=== PATIENT | male | born 1935 | race Caucasian/White ===

== ENCOUNTER 2016-12-17 23:40 | Inpatient (IN) ==
[2016-12-18] MEDS ORDERED: ALBUTEROL/IPRATROPIUM 3 ML NEB RESP TX STA (00:12)
--- NOTE | 2016-12-18 00:16 | Emergency Department Note ---
Anatoly Kearney Brittany, am scribing for, and in the presence of, Adelita Reyna DO 00:14. IAxel Debra, DO, personally performed the services described in this documentation, ascribed by Jackie Ledbetter in my presence, and it is both accurate and complete . Arrival - Arrival Chief Complaint: Shortness of Breath Stated Complaint: COPD, pneumonia ED Nursing Triage Note: patient states he has been short of breath since saturday. hx copd Mode of Arrival: Wheelchair Limitations: No Limitations Source: Patient, RN Notes Reviewed - History of Present Illness HPI Narrative: Patient is a 80 y/o white male with a history significant for COPD presenting to the ED with c/o SOB which onset 3 days ago, worsening today. Patient states that after SOB onset Saturday, he utilized Prednisone, and had relief over the course of the next 2 days. This morning patient began to experience a worsening of SOB and has been having fever/chills. It is noted that during triage patient had a fever of 100.4. Patient states that he has had some mild swelling of the bilateral lower extremities as well with this. His Marketing Administrator is Dr. Garrett Fam. Patient has no other complaint/pain in the ED at this time. Onset (ago): day(s) (3) Consistency: constant Allergies/Adverse Reactions: Allergies Allergy/AdvReac Type Severity Reaction Status Date / Time rosuvastatin [From Crestor] Allergy RASH Verified 12/17/16 23:54 Home Medications: Home Medications Medication Instructions Recorded Confirmed Type Albuterol/Ipratropium Neb [Duoneb] 3 ml RESP TX RT Q6H 12/17/16 12/17/16 History Aspirin [Ecotrin] 81 mg PO DAILY 12/17/16 12/17/16 History Atenolol 25 mg PO DAILY 12/17/16 12/17/16 History Atorvastatin [Lipitor] 10 mg PO DAILY 12/17/16 12/17/16 History Furosemide Tab [Lasix Tab] 40 mg PO DAILY 12/17/16 12/17/16 History Magnesium Chloride [Slow Mag] 64 mg PO DAILY 12/17/16 12/17/16 History Omeprazole 10 mg PO DAILY 12/17/16 12/17/16 History Potassium Chloride 10 meq PO DAILY 12/17/16 12/17/16 History amLODIPine [Norvasc] 5 mg PO DAILY 12/17/16 12/17/16 History predniSONE TAB [PredniSONE] 10 mg PO DAILY 12/17/16 12/17/16 History Review of System - Review of System 12 point system: reviewed and no additional remarkable complaints except as stated - Review of System Constitutional: Present: chills, fever Eyes: Absent: vision change Head/Ears/Nose/Throat: Absent: nasal drainage, sore throat Respiratory: Present: respiratory distress Cardiovascular: Absent: chest pain Gastrointestinal: Absent: abdominal pain, nausea, vomiting, diarrhea, constipation Genitourinary male: Absent: urgency, dysuria, frequency Musculoskeletal: Absent: arm pain, back pain, leg pain, neck pain Skin: Absent: rash Neurological: Absent: headache Psychiatric: Absent: anxiety, depression Medical,Surgical,& Family Hx - Medical History Cardio: History of: Hypertension, [place] Endocrine: History of: Dyslipidemia Respiratory: History of: COPD, Pneumonia - Social History Smoking Status: Unknown if ever smoked Frequency of Alcohol Use: None Type of Drug Use: None Exam Vital Signs: Vital Signs Temperature 100.4 F H 12/17/16 23:47 Pulse Rate 93 H 12/18/16 00:35 Respiratory Rate 21 12/18/16 00:35 Blood Pressure 143/76 12/18/16 00:04 O2 Sat by Pulse Oximetry 97 12/18/16 00:35 - General General appearance: alert, in no apparent distress, cachectic - Head Head exam: Present: atraumatic, normocephalic, normal inspection - Eye Eye exam: Present: normal appearance, PERRL, EOMI - ENT ENT exam: Present: normal exam, normal oropharynx - Neck Neck exam: Present: normal inspection, full ROM, trachea midline - Chest Chest inspection: Present: normal inspection, symmetric chest wall rise - Respiratory Respiratory exam: Present: rales (throughout bilateral lung gonzalez), rhonchi ( throughout bilateral lung gonzalez), wheezes (throughout bilateral lung gonzalez), other (pursed lip breathing). Absent: normal lung sounds bilaterally - Cardiovascular Cardiovascular exam: Present: normal rhythm, tachycardia, normal heart sounds. Absent: regular rate - Abdominal Exam Abdominal exam: Present: soft, normal bowel sounds. Absent: tenderness - Extremities Exam Extremities exam: Present: pedal edema (mild non-pitting edema to bilateral lower extremities). Absent: normal inspection - Back Exam Back exam: Present: normal inspection - Neurological Exam Neurological exam: Present: alert, oriented X3, CN II-XII intact. Absent: motor sensory deficit - Psychiatric Psychiatric exam: Present: normal affect, normal mood - Skin Skin exam: Present: warm, dry Course Course Narrative: spoke with Dr Mckinney who will admit pt for pneumonia. pt is stable Results - Labs CBC & BMP: 12/18/16 00:10 Lab Results: I have reviewed the patients labs Labs: Laboratory Tests 12/18/16 00:10 WBC 16.8 H RBC 4.44 Hgb 12.6 L Hct 37.0 L MCV 83.3 L Plt Count 389 Neut % (Auto) 80.2 H Lymph % (Auto) 10.1 L Neut # (Auto) 13.5 H Dent # (Auto) 1.4 H - EKG EKG results: interpreted by ERMD - Diagnostic Findings Procedure: Chest x-ray: image reviewed by me (rt lower lobe pneumonia) Disposition Case discussed with: patient, patient's family Disposition: Still a Patient Condition: Stable Time of Disposition: 00:53
[2016-12-18 00:37] LABS: Basophils % 0.1 % (0.0-0.8); Eosinophils % 0.2 % (0.00-10.9); Hemoglobin 12.6 GM/DL (14.0-18.0); Immature Granulocytes % 0.9 %; Immature Granulocytes Absolute 0.15 #; Lymphocytes # 1.7 10*3/uL (1.4-4.0); Lymphocytes % 10.1 % (21.2-54.2); Mean Corpuscular HGB Conc 34.1 GM/DL (32-36); Mean Corpuscular Hemoglobin 28 PG (27-34); Mean Corpuscular Volume 83.3 FL (87-102); Mean Platelet Volume 9.6 FL (9.6-12.0); Monocytes # 1.4 10*3/uL (0.11-0.8); Monocytes % 8.5 % (1.7-12.7); Neutrophils # 13.5 10*3/uL (1.4-7.4); Neutrophils % 80.2 % (38.7-73.9); Platelet Count 389 T/CUMM (130-400); Red Blood Count 4.44 MC/CUMM (3.8-5.5); Red Cell Distribution Width 14.6 % (9.3-17.3); White Blood Count 16.8 T/CUMM (4-12)
[2016-12-18] MEDS ORDERED: LEVOFLOXACIN INJ 750 MG in PREMIX 1 EACH IV STA (00:50)
[2016-12-18] MEDS ORDERED: LEVOFLOXACIN INJ 150 ML IV ONE (00:58)
[2016-12-18 01:00] LABS: Lactic Acid 1.3 MMOL/L (0.4-2.0)
[2016-12-18 01:02] LABS: Albumin 3.6 G/DL (3.4-5.0); Bilirubin,Total 0.5 MG/DL (0.2-1.0); Calcium 9.4 MG/DL (8.5-10.1); Osmolality,Calculated 270.2 MOS/KG (273-304); Potassium 4.2 MMOL/L (3.5-5.1); Total Protein 7.2 G/DL (6.4-8.3)
[2016-12-18] MEDS ORDERED: HYDROcodone/CHLORPHENIRAMINE ER 5 ML UDCUP PO ONE ×2 (01:22→01:51)
[2016-12-18] MEDS ORDERED: ACETAMINOPHEN 325 MG TABLET PO PRN (01:48)
[2016-12-18] MEDS ORDERED: ALBUTEROL 2.5 MG/3 ML NEB RESP TX PRN (01:48)
--- NOTE | 2016-12-18 01:56 | Hospitalist History & Physical ---
Assessment and Plan (1) History of coronary artery disease Status: Acute Current Visit: Yes (2) History of COPD Status: Acute Current Visit: Yes (3) Pneumonia Status: Acute Assessment and plan: Our plan for this patient will be admitting him to our service. Will consult his gauge controller which is Dr. Kg Fam. He will be started on IV antibiotics blood cultures been drawn. Will schedule breathing treatments. We will also increase his steroids from 10 mg daily to 40 mg daily while he is in the hospital. Continue other home meds as appropriate. Reevaluate patient in the morning. Current Visit: Yes History of Present Illness Chief complaint: Cough and shortness of breath History of present illness: Mr. Mckeon is a 80 year old male with past medical history significant for COPD and coronary artery disease he is been having shortness of breath for the past several days. Earlier he was running fever. He felt pretty bad and Saturday but Saturday and Saturday were okay. Today his symptoms return he felt worse. He felt like he needed to come up to the hospital for further evaluation. I was consulted to admit him when it was noted that he had a pneumonia. Home Medications Medication Instructions Recorded Confirmed Type Albuterol/Ipratropium Neb [Duoneb] 3 ml RESP TX RT Q6H 12/17/16 12/17/16 History Aspirin [Ecotrin] 81 mg PO DAILY 12/17/16 12/17/16 History Atenolol 25 mg PO DAILY 12/17/16 12/17/16 History Atorvastatin [Lipitor] 10 mg PO DAILY 12/17/16 12/17/16 History Furosemide Tab [Lasix Tab] 40 mg PO DAILY 12/17/16 12/17/16 History Magnesium Chloride [Slow Mag] 64 mg PO DAILY 12/17/16 12/17/16 History Omeprazole 10 mg PO DAILY 12/17/16 12/17/16 History Potassium Chloride 10 meq PO DAILY 12/17/16 12/17/16 History amLODIPine [Norvasc] 5 mg PO DAILY 12/17/16 12/17/16 History predniSONE TAB [PredniSONE] 10 mg PO DAILY 12/17/16 12/17/16 History Allergies Allergy/AdvReac Type Severity Reaction Status Date / Time rosuvastatin [From Crestor] Allergy RASH Verified 12/17/16 23:54 Medical,Surgical,& Family Hx - Medical History Cardio: History of: Hypertension, [place] Endocrine: History of: Dyslipidemia Respiratory: History of: COPD, Pneumonia - Surgical History Cardiac Surgeries: Sugical HX of: Cardiac Surgery - Family History Family History: Reports;: Family Hypertension - Social History Smoking Status: Former smoker Frequency of Alcohol Use: None Type of Drug Use: None 12 point system: reviewed and no additional remarkable complaints except as stated Exam - Constitutional Vitals: Period Temp Pulse Resp BP Sys/Huitron Pulse Ox Last 24 Hr 100.4 F-100.4 F 93-102 20-26 143-149/63-76 91-97 - General General appearance: alert, in no apparent distress - Head Head exam: Present: atraumatic, normocephalic, normal inspection - Eye Eye exam: Present: normal appearance, EOMI asymmetrical pupils but 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 Absent: regular rate - Abdominal Exam Abdominal exam: Present: soft, normal bowel sounds. Absent: tenderness - Extremities Exam Extremities exam: Present: Some mild edema appreciated - Back Exam Back exam: Present: normal inspection - Neurological Exam Neurological exam: Present: alert, oriented X3, CN II-XII intact. Absent: motor sensory deficit - Psychiatric Psychiatric exam: Present: normal affect, normal mood - Skin Skin exam: Present: warm, dry Results - Labs CBC & BMP: 12/18/16 00:10 12/18/16 00:10
[2016-12-18 06:32] LABS: Basophils % 0.1 % (0.0-0.8); Eosinophils % 0.1 % (0.00-10.9); Hematocrit 33.3 VOL% (42.0-52.0); Hemoglobin 11.2 GM/DL (14.0-18.0); Immature Granulocytes % 0.7 %; Lymphocytes # 2.2 10*3/uL (1.4-4.0); Lymphocytes % 14.5 % (21.2-54.2); Mean Corpuscular HGB Conc 33.6 GM/DL (32-36); Mean Corpuscular Hemoglobin 28 PG (27-34); Mean Corpuscular Volume 83.7 FL (87-102); Mean Platelet Volume 9.9 FL (9.6-12.0); Monocytes # 1.6 10*3/uL (0.11-0.8); Monocytes % 10.8 % (1.7-12.7); Neutrophils # 11.1 10*3/uL (1.4-7.4); Neutrophils % 73.8 % (38.7-73.9); Platelet Count 398 T/CUMM (130-400); Red Blood Count 3.98 MC/CUMM (3.8-5.5); Red Cell Distribution Width 14.6 % (9.3-17.3)
[2016-12-18 07:12] LABS: Albumin 3.1 G/DL (3.4-5.0); Calcium 8.8 MG/DL (8.5-10.1); Osmolality,Calculated 268.2 MOS/KG (273-304); Potassium 4.7 MMOL/L (3.5-5.1); Total Protein 6.5 G/DL (6.4-8.3)
[2016-12-18] MEDS: ALBUTEROL/IPRATROPIUM 3 ML NEB RESP TX SCH ×3 (07:25→19:46)
--- NOTE | 2016-12-18 07:25 | XRay Report ---
History short of breath Comparison 06/25/2011 Heart is at the upper range normal in size with sequelae of prior median sternotomy There has been interval development of reticular nodular opacities in the lower half right chest mildly more confluent opacity in the medial right lung base Minimally increasing reticular opacities in the left base present. The lungs are chronically hyperexpanded with chronic blunting of the costophrenic angles. Right rib contours grossly similar on the prior study Impression: Interval development of the right greater than left basilar infiltrates superimposed on chronic changes. Follow-up until clear is necessary PROCEDURE INTERPRETED AT [facility] DEPARTMENT OF RADIOLOGY Final Report Signed by: Dr. Yadira Stewrat
--- NOTE | 2016-12-18 07:47 | EKG Report ---
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
--- NOTE | 2016-12-18 08:21 | Pulmonology Consult Note ---
Assessment and Plan (1) Pneumonia Status: Acute Assessment and plan: The patient comes in with an acute febrile illness and does have right lower lobe pneumonia. He looks reasonably comfortable at present. We will continue with antibiotics and respiratory therapy. Current Visit: Yes Qualifiers: Laterality: right Lung location: lower lobe of lung (2) History of coronary artery disease Status: Acute Assessment and plan: The patient is not having any angina. Current Visit: Yes (3) History of COPD Status: Acute Assessment and plan: Patient is reasonably comfortable at present. He will continue with bronchodilator therapy. Current Visit: Yes History of Present Illness Chief complaint: Pneumonia History of present illness: Mr. Mckeon is a 80 year old white male that has a history of having COPD and coronary artery disease came in with increased shortness of breath yesterday. He was found to have a right lower lobe pneumonia. He says he has been sick all last week with some sinus drainage and coughing. He felt like he had a low- grade fever. He is coughing up some thick secretions. He says his shortness of breath is not too badly. He says he is feeling a little better today. He has not had a lot of problems lately. He did say last week he increased his prednisone a little but still had a lot of congestion. Home Medications Medication Instructions Recorded Confirmed Type Albuterol/Ipratropium Neb [Duoneb] 3 ml RESP TX RT Q6H 12/17/16 12/17/16 History Aspirin [Ecotrin] 81 mg PO DAILY 12/17/16 12/17/16 History Atenolol 25 mg PO DAILY 12/17/16 12/17/16 History Atorvastatin [Lipitor] 10 mg PO DAILY 12/17/16 12/17/16 History Furosemide Tab [Lasix Tab] 40 mg PO DAILY 12/17/16 12/17/16 History Magnesium Chloride [Slow Mag] 64 mg PO DAILY 12/17/16 12/17/16 History Omeprazole 10 mg PO DAILY 12/17/16 12/17/16 History Potassium Chloride 10 meq PO DAILY 12/17/16 12/17/16 History amLODIPine [Norvasc] 5 mg PO DAILY 12/17/16 12/17/16 History predniSONE TAB [PredniSONE] 10 mg PO DAILY 12/17/16 12/17/16 History Allergies Allergy/AdvReac Type Severity Reaction Status Date / Time rosuvastatin [From Crestor] Allergy RASH Verified 12/17/16 23:54 - Constitutional Constitutional: Present: chills, fatigue, fever(s). Absent: weakness, weight loss - EENT Eyes: Absent: loss of vision Ears: Absent: decreased hearing Nose, mouth and throat: Present: nasal congestion, sinus pressure. Absent: dysphagia, headache(s) - Cardiovascular Cardiovascular: Present: dyspnea, dyspnea on exertion. Absent: chest pain at rest, chest pain with activity, orthopnea, palpitations - Respiratory Respiratory: Present: cough, dyspnea, wheezing, change in phlegm color. Absent : hemoptysis, pain on inspiration - Gastrointestinal Gastrointestinal: Present: diarrhea. Absent: abdominal pain, dysphagia, heartburn, nausea, vomiting - Genitourinary Genitourinary: Absent: difficulty urinating, dysuria, urinary frequency - Musculoskeletal Musculoskeletal: Absent: arthralgias, muscle weakness - Neurological Neurological: Absent: abnormal speech, focal weakness, paresthesias - Psychiatric Psychiatric: Absent: anxiety, depression Exam (Pulmonay) H&P - Constitutional Vitals: Period Temp Pulse Resp BP Sys/Huitron Pulse Ox Last 24 Hr 98.8 F-100.4 F 84-102 20-26 129-149/57-76 91-97 General appearance: no acute distress (He looks comfortable in bed at present.) , under weight - Head Head exam: Present: normal inspection, normocephalic - Eye Eye exam: Present: EOMI. Absent: scleral icterus Pupils: Present: GLORIA - ENT ENT exam: Present: normal exam - Neck Neck exam: Present: normal inspection. Absent: lymphadenopathy, thyromegaly - Respiratory Respiratory exam: Present: decreased breath sounds, prolonged expiratory phase, rales, rhonchi. Absent: accessory muscle use - Cardiovascular Cardiovascular exam: Present: regular rate and rhythm, tachycardia. Absent: gallop, systolic murmur - GI/Abdominal GI/Abdominal exam: Present: hypoactive bowel sounds, soft. Absent: distended, organomegaly, tenderness - Extremities Exam Extremities exam: Present: edema (Has trace edema.). Absent: calf tenderness - Back Exam Back exam: Present: normal inspection - Neurological Exam Neurological exam: Present: alert, oriented X3, CN II-XII intact. Absent: motor sensory deficit - Psychiatric Psychiatric exam: Present: normal affect - Skin Skin exam: Present: warm, dry Medical,Surgical,& Family Hx - Medical History Cardio: History of: Hypertension, [place] Endocrine: History of: Dyslipidemia Respiratory: History of: COPD, Pneumonia - Surgical History Cardiac Surgeries: Sugical HX of: Cardiac Surgery Orthopedic Surgeries: Surgical HX of;: Orthopedic Surgery (knee and elbow) - Family History Family History: Reports;: Family Hypertension - Social History Smoking Status: Unknown if ever smoked Frequency of Alcohol Use: None Type of Drug Use: None Results - Labs CBC & BMP: 12/18/16 05:41 12/18/16 05:41 - Diagnostic Findings Procedure: Chest x-ray: image reviewed by me, report reviewed by me (Chest x- ray does show right lower lobe consolidation.)
[2016-12-18] MEDS: amLODIPine 5 MG TABLET PO SCH (09:23)
[2016-12-18] MEDS: FUROSEMIDE 40 MG TABLET PO SCH (09:23)
[2016-12-18] MEDS: MAGNESIUM CHLORIDE 64 MG TABLET PO SCH (09:23)
[2016-12-18] MEDS: PANTOPRAZOLE 40 MG TABLET PO SCH (09:23)
[2016-12-18] MEDS: predniSONE 20 MG TABLET PO SCH (09:23)
[2016-12-18] MEDS: POTASSIUM CHLORIDE 10 MEQ TABLET PO SCH (09:23)
[2016-12-18] MEDS: cefTRIAXone 1,000 MG in SODIUM CHLORIDE 0.9% 100 ML IV SCH (09:23)
[2016-12-18] MEDS: ATORVASTATIN 10 MG TABLET PO SCH (09:23)
[2016-12-18] MEDS: ENOXAPARIN 40 MG/0.4 ML SYRINGE SUBCUT SCH (09:23)
[2016-12-18] MEDS: ASPIRIN EC 81 MG TABLET PO SCH (09:23)
[2016-12-18] MEDS: ATENOLOL 25 MG TABLET PO SCH (09:24)
--- NOTE | 2016-12-18 15:07 | Hospitalist Progress Note ---
Assessment and Plan (1) Pneumonia Status: Acute Assessment and plan: Status: Acute Assessment and plan: The patient comes in with an acute febrile illness and does have right lower lobe pneumonia. continue IV antbx duonebs and oxygen pulmonary consulted will follow their recs Current Visit: Yes Qualifiers: Laterality: right Lung location: lower lobe of lung (2) History of coronary artery disease Status: Acute Assessment and plan: stable contiune his home meds Current Visit: Yes (3) History of COPD Status: Acute Assessment and plan: stable will continue with bronchodilator and oxygen therapy. Current Visit: Yes Current Visit: Yes Qualifiers: Laterality: right Lung location: lower lobe of lung Hospitalist: Subjective Interval history: feeling better less sob no fever hx of COPD on home oxygen and duoneb started on iv Levaquin Exam - Constitutional Vitals: Period Temp Pulse Resp BP Sys/Huitron Pulse Ox Last 24 Hr 97.7 F-100.4 F 68-102 18-26 116-149/56-76 91-99 heent, pearle neck, supple. chest decerase breath sounds at the base with fine Rhonchi cvs, s1 s2. 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
[2016-12-18] MEDS: LEVOFLOXACIN INJ 750 MG in PREMIX 1 EACH IV SCH (20:13)
[2016-12-19] MEDS: ALBUTEROL/IPRATROPIUM 3 ML NEB RESP TX SCH ×4 (00:14→19:12)
--- NOTE | 2016-12-19 08:37 | Pulmonology Progress Note ---
Pulmonary - PN: Subj Interval history: Patient is an 80-year-old white man that has COPD and coronary artery disease. He came in with fever and coughing and congestion. He was found to have a right lower lobe pneumonia. He says he is feeling better on antibiotics but still has some cough and congestion. His breathing is doing a little better. Overall he appears stable. Exam (Progress Note) - Constitutional Vitals: Period Temp Pulse Resp BP Sys/Huitron Pulse Ox Last 24 Hr 97 F-97.8 F 67-85 18-22 116-148/56-72 93-100 Exam: General appearance: no acute distress (He looks comfortable sitting up in his bed. ), under weight - Head Head exam: Present: normal inspection, normocephalic - Eye Eye exam: Present: EOMI. Absent: scleral icterus Pupils: Present: GLORIA - ENT ENT exam: Present: normal exam - Neck Neck exam: Present: normal inspection. Absent: lymphadenopathy, thyromegaly - Respiratory Respiratory exam: Present: He has distant breath sounds but is moving air okay with some slight rhonchi present. - Cardiovascular Cardiovascular exam: Present: regular rate and rhythm, tachycardia. Absent: gallop, systolic murmur - GI/Abdominal GI/Abdominal exam: Present: hypoactive bowel sounds, soft. Absent: distended, organomegaly, tenderness - Extremities Exam Extremities exam: Present: edema (Has trace edema.). Absent: calf tenderness - Back Exam Back exam: Present: normal inspection - Neurological Exam Neurological exam: Present: alert, oriented X3, CN II-XII intact. Absent: motor sensory deficit - Psychiatric Psychiatric exam: Present: normal affect - Skin Skin exam: Present: warm, dry Results - Labs CBC & BMP: 12/18/16 05:41 12/18/16 05:41 Assessment and Plan (1) Pneumonia Status: Acute Assessment and plan: The patient comes in with an acute febrile illness and does have right lower lobe pneumonia. He looks reasonably comfortable at present. His blood cultures are negative so far. He is tolerating antibiotics. Current Visit: Yes Qualifiers: Laterality: right Lung location: lower lobe of lung (2) History of coronary artery disease Status: Acute Assessment and plan: The patient is not having any angina. Current Visit: Yes (3) History of COPD Status: Acute Assessment and plan: Patient is reasonably comfortable at present. He will continue with bronchodilator therapy. His respiratory status is stable. Current Visit: Yes
[2016-12-19] MEDS: cefTRIAXone 1,000 MG in SODIUM CHLORIDE 0.9% 100 ML IV SCH (08:52)
[2016-12-19] MEDS ORDERED: predniSONE 10 MG TABLET ONE (09:27)
[2016-12-19] MEDS: ENOXAPARIN 40 MG/0.4 ML SYRINGE SUBCUT SCH (09:52)
[2016-12-19] MEDS: ASPIRIN EC 81 MG TABLET PO SCH (09:53)
[2016-12-19] MEDS: ATENOLOL 25 MG TABLET PO SCH (09:53)
[2016-12-19] MEDS: MAGNESIUM CHLORIDE 64 MG TABLET PO SCH (09:53)
[2016-12-19] MEDS: FUROSEMIDE 40 MG TABLET PO SCH (09:54)
[2016-12-19] MEDS: predniSONE 20 MG TABLET PO SCH (09:54)
[2016-12-19] MEDS: PANTOPRAZOLE 40 MG TABLET PO SCH (09:54)
[2016-12-19] MEDS: ATORVASTATIN 10 MG TABLET PO SCH (09:54)
[2016-12-19] MEDS: POTASSIUM CHLORIDE 10 MEQ TABLET PO SCH (09:55)
[2016-12-19] MEDS: amLODIPine 5 MG TABLET PO SCH (09:55)
--- NOTE | 2016-12-19 17:57 | Hospitalist Progress Note ---
Assessment and Plan (1) Pneumonia Status: Acute Current Visit: Yes Qualifiers: Laterality: right Lung location: lower lobe of lung (2) History of coronary artery disease Status: Acute Current Visit: Yes (3) History of COPD Status: Acute Current Visit: Yes Hospitalist: Subjective Interval history: No acute events overnight. Patient feeling better. He is eager for discharge. Exam - Constitutional Vitals: Period Temp Pulse Resp BP Sys/Huitron Pulse Ox Last 24 Hr 97 F-97.8 F 67-96 18-21 116-148/56-72 94-100 General appearance: normal weight - Head Head exam: Present: normocephalic, atraumatic - Eye Eye exam: Present: EOMI Pupils: Present: GLORIA - ENT ENT exam: Present: normal exam - Neck Neck exam: Present: normal inspection - Respiratory Respiratory exam: Present: clear to auscultation bilaterally. Absent: rhonchi, wheezes - Cardiovascular Cardiovascular exam: Present: regular rate and rhythm - GI/Abdominal GI/Abdominal exam: Present: normal bowel sounds, soft. Absent: tenderness, rebound - Extremities Exam Extremities exam: Present: normal inspection - Back Exam Back exam: Present: normal inspection - Neurological Exam Neurological exam: Present: alert, oriented X3 - Psychiatric Psychiatric exam: Present: normal affect, normal mood - Skin Skin exam: Present: warm, intact Results - Labs CBC & BMP: 12/18/16 05:41 12/18/16 05:41
[2016-12-19] MEDS: LEVOFLOXACIN INJ 750 MG in PREMIX 1 EACH IV SCH (21:12)
[2016-12-20] MEDS: ALBUTEROL/IPRATROPIUM 3 ML NEB RESP TX SCH ×2 (01:41→07:41)
[2016-12-20 05:36] LABS: Basophils % 0.1 % (0.0-0.8); Eosinophils % 0.3 % (0.00-10.9); Hemoglobin 10.5 GM/DL (14.0-18.0); Immature Granulocytes % 0.6 %; Immature Granulocytes Absolute 0.06 #; Lymphocytes % 19.1 % (21.2-54.2); Mean Corpuscular HGB Conc 33.9 GM/DL (32-36); Mean Corpuscular Hemoglobin 28 PG (27-34); Mean Corpuscular Volume 83.1 FL (87-102); Mean Platelet Volume 9.1 FL (9.6-12.0); Monocytes # 1.1 10*3/uL (0.11-0.8); Monocytes % 10.2 % (1.7-12.7); Neutrophils # 7.4 10*3/uL (1.4-7.4); Neutrophils % 69.7 % (38.7-73.9); Platelet Count 343 T/CUMM (130-400); Red Blood Count 3.73 MC/CUMM (3.8-5.5); Red Cell Distribution Width 14.2 % (9.3-17.3); White Blood Count 10.7 T/CUMM (4-12)
[2016-12-20 06:11] LABS: Calcium 8.5 MG/DL (8.5-10.1); Osmolality,Calculated 271.2 MOS/KG (273-304); Potassium 4.4 MMOL/L (3.5-5.1)
--- NOTE | 2016-12-20 09:18 | XRay Report ---
Exam: XR chest 2V Date: 12/20/2016 731 AM Indication: Pneumonia Comparison: None Technical: PA lateral Findings: Sternotomy wires are present. Underlying COPD with hyperinflation present. ASVD is present. Small partially calcified nodes in the mediastinum with some apical pleural thickening present. Improving aeration present in the base regions with decreasing interstitial shunt vascularity and edema Impression: 1. Improving aeration with decreasing interstitial edema or infiltrates in the base regions superimposed on chronic COPD change and previous sternotomy. PROCEDURE INTERPRETED AT [facility] DEPARTMENT OF RADIOLOGY Final Report Signed by: Dr. Tariq Rogers
--- NOTE | 2016-12-20 09:29 | Pulmonology Progress Note ---
Pulmonary - PN: Subj Interval history: Patient is an 80-year-old white man that has COPD and coronary artery disease. He came in with fever and coughing and congestion. He was found to have a right lower lobe pneumonia. He says he is feeling better on antibiotics but still has some cough and congestion. He is ambulating without problems and his breathing is much better. His chest x-ray looks much better than the right lower lobe infiltrate has cleared. He is doing well and can go home and complete a course of antibiotic therapy. Exam (Progress Note) - Constitutional Vitals: Period Temp Pulse Resp BP Sys/Huitron Pulse Ox Last 24 Hr 97.0 F-98.3 F 65-96 18-22 117-142/58-76 93-100 Exam: General appearance: no acute distress (He looks comfortable and is ambulating without problems. ), under weight - Head Head exam: Present: normal inspection, normocephalic - Eye Eye exam: Present: EOMI. Absent: scleral icterus Pupils: Present: GLORIA - ENT ENT exam: Present: normal exam - Neck Neck exam: Present: normal inspection. Absent: lymphadenopathy, thyromegaly - Respiratory Respiratory exam: Present: He has distant breath sounds but is moving air okay with some slight rhonchi present. He does not have any signs of consolidation now. - Cardiovascular Cardiovascular exam: Present: regular rate and rhythm, tachycardia. Absent: gallop, systolic murmur - GI/Abdominal GI/Abdominal exam: Present: hypoactive bowel sounds, soft. Absent: distended, organomegaly, tenderness - Extremities Exam Extremities exam: Present: edema (Has trace edema.). Absent: calf tenderness - Back Exam Back exam: Present: normal inspection - Neurological Exam Neurological exam: Present: alert, oriented X3, CN II-XII intact. Absent: motor sensory deficit - Psychiatric Psychiatric exam: Present: normal affect - Skin Skin exam: Present: warm, dry Results - Labs CBC & BMP: 12/20/16 05:27 12/20/16 05:27 - Diagnostic Findings Procedure: Chest x-ray: image reviewed by me, report reviewed by me (Chest x- ray shows COPD changes and infiltrate in the right lower lobe is much better) Assessment and Plan (1) Pneumonia Status: Acute Assessment and plan: The patient comes in with an acute febrile illness and does have right lower lobe pneumonia. He has done well with IV antibiotics and is feeling better. His chest x-ray is much better. He can go home today and complete a course of outpatient antibiotics. Current Visit: Yes Qualifiers: Laterality: right Lung location: lower lobe of lung (2) History of coronary artery disease Status: Acute Assessment and plan: The patient is not having any angina. Current Visit: Yes (3) History of COPD Status: Acute Assessment and plan: Patient is reasonably comfortable at present. He will continue with bronchodilator therapy. His respiratory status is stable. Overall he is doing well and can go home today. Current Visit: Yes
[2016-12-20] MEDS: ENOXAPARIN 40 MG/0.4 ML SYRINGE SUBCUT SCH (09:49)
[2016-12-20] MEDS: ATORVASTATIN 10 MG TABLET PO SCH (09:49)
[2016-12-20] MEDS: POTASSIUM CHLORIDE 10 MEQ TABLET PO SCH (09:49)
[2016-12-20] MEDS: amLODIPine 5 MG TABLET PO SCH (09:49)
[2016-12-20] MEDS: predniSONE 20 MG TABLET PO SCH (09:49)
[2016-12-20] MEDS: PANTOPRAZOLE 40 MG TABLET PO SCH (09:49)
[2016-12-20] MEDS: MAGNESIUM CHLORIDE 64 MG TABLET PO SCH (09:49)
[2016-12-20] MEDS: ATENOLOL 25 MG TABLET PO SCH (09:49)
[2016-12-20] MEDS: FUROSEMIDE 40 MG TABLET PO SCH (09:50)
[2016-12-20] MEDS: ASPIRIN EC 81 MG TABLET PO SCH (09:50)
[2016-12-20] MEDS: cefTRIAXone 1,000 MG in SODIUM CHLORIDE 0.9% 100 ML IV SCH (09:50)
[2016-12-20 10:43] VITALS: BP 131/76
--- NOTE | 2016-12-20 11:23 | Discharge Summary ---
Hospital Course - Hospital Course Hospital Course: Mr. Mckeon is a 80 year old male with past medical history significant for COPD and coronary artery disease who presented with shortness of breath for the past several days. He also reported fever. He was noted to have pneumonia in the emergency department. He was admitted to the hospitalist service for further care. He was started on breathing treatments, steroids and levaquin. His book sorter, Dr. Fam, was consulted. Rocephin was added. He has done well with continual improvement. He is now ambulating in the halls with improvement in his cxr. He has now reached maximal benefit of inpatient stay and will be discharged to home. - Time spent with patient Time with patient DS: Less than 30 minutes (25) Diagnosis - Discharge Diagnosis (1) Pneumonia Status: Resolved (2) History of coronary artery disease Status: Chronic (3) History of COPD Status: Chronic Discharge Plan - Discharge Data Disposition: Disch To Home/Self Care Condition at Discharge: Stable Discharge Diet: heart healthy Activity: increase activity as tolerated Hygiene: no restrictions Weight Bearing at Discharge: weight bear as tolerated Driving: no restrictions Contact your physician if you experience:: fever over 101, Shortness of breath - Discharge Medications New predniSONE TAB [PredniSONE] 20 mg PO DAILY #7 tablet Levofloxacin Tab [Levaquin Tab] 500 mg PO DAILY #5 tablet Continue Omeprazole 10 mg PO DAILY Magnesium Chloride [Slow Mag] 64 mg PO DAILY Albuterol/Ipratropium Neb [Duoneb] 3 ml RESP TX RT Q6H Furosemide Tab [Lasix Tab] 40 mg PO DAILY Atorvastatin [Lipitor] 10 mg PO DAILY amLODIPine [Norvasc] 5 mg PO DAILY Potassium Chloride 10 meq PO DAILY Atenolol 25 mg PO DAILY Aspirin [Ecotrin] 81 mg PO DAILY Discontinued predniSONE TAB [PredniSONE] 10 mg PO DAILY - Follow Up or Referral - Forms/Instructions Exam - Constitutional Vitals: Period Temp Pulse Resp BP Sys/Huitron Pulse Ox Last 24 Hr 97.0 F-98.3 F 65-96 18-22 117-142/58-76 93-100 General appearance: normal weight - Head Head exam: Present: normocephalic, atraumatic - Eye Eye exam: Present: EOMI Pupils: Present: GLORIA - ENT ENT exam: Present: normal exam - Neck Neck exam: Present: normal inspection - Respiratory Respiratory exam: Present: clear to auscultation bilaterally. Absent: rhonchi, wheezes - Cardiovascular Cardiovascular exam: Present: regular rate and rhythm - GI/Abdominal GI/Abdominal exam: Present: normal bowel sounds, soft. Absent: tenderness, rebound - Extremities Exam Extremities exam: Present: normal inspection - Back Exam Back exam: Present: normal inspection - Neurological Exam Neurological exam: Present: alert, oriented X3 - Psychiatric Psychiatric exam: Present: normal affect, normal mood - Skin Skin exam: Present: warm, intact Discharge Results Procedures and tests throughout hospitalization: Pending Orders 12/18/16 00:26 Blood Culture Stat Labs on day of discharge: Labs from last 24 hours 12/20/16 12/20/16 05:27 05:27 WBC 10.7 RBC 3.73 L Hgb 10.5 L Hct 31.0 L MCV 83.1 L MCH 28 MCHC 33.9 RDW 14.2 Plt Count 343 MPV 9.1 L Neut % (Auto) 69.7 Lymph % (Auto) 19.1 L [place] % (Auto) 10.2 Eos % (Auto) 0.3 Baso % (Auto) 0.1 Neut # (Auto) 7.4 Lymph # (Auto) 2.0 [place] # (Auto) 1.1 H Eos # (Auto) 0.0 Baso # (Auto) 0.0 Immature Gran % 0.6 Nucleated RBC % 0.0 Immature Gran # 0.06 Nucleated RBCs # 0.00 Sodium 134 L Potassium 4.4 Chloride 100 Carbon Dioxide 27 Anion Gap 11.4 BUN 25 H Creatinine 1.00 GFR Calculation 67 BUN/Creatinine Ratio 25.00 H Glucose 97 Calculated Osmolality 271.2 L Calcium 8.5 Magnesium 2.0 Preliminary micro results at discharge 12/18/16 00:26 Blood Culture - Preliminary Blood No growth at 1 day 12/18/16 00:10 Blood Culture - Preliminary Blood No growth at 1 day DS: Provider Date of admission: 12/18/16 01:48 Primary care physician: . No PCP Attending physician on admission: Paulie Mckinney MD Consults: 12/18/16 01:48 Consult to Physician [CONS] Routine Comment: patient known to you Consulting Provider: Garrett Fam Person Notified: AWARE Date Notified: 12/18/16 Time Notified: 08:11 12/18/16 02:44 Consult to Dietitian [CONS] Routine Reason for Dietitian: Dietary Consult 12/18/16 09:50 Consult to Case Mgmt/Social Srvs [CONS] Routine Reason for Case Mgmt/Social Srvs: Home Health Discharging clinician: Chip Brewer MD
== END 2016-12-20 12:58 | disposition home health service (06) | DRG 190 ==
LOC: N.ED 23:40 → SUATTDRO 12-18 01:48 → N.EDINP 12-18 01:48 → N.5E 12-18 02:19
PROVIDERS: ADMIT Internal Medicine; ATTEND Internal Medicine

== ENCOUNTER 2018-02-11 06:42 | Inpatient (IN) ==
[2018-02-05 10:47] LABS: Basophils # 0.1 10*3/uL (0.0-0.2); Basophils % 0.9 % (0.0-0.8); Eosinophils # 0.6 10*3/uL (0.0-0.87); Eosinophils % 9.4 % (0.00-10.9); Hematocrit 35.8 VOL% (42.0-52.0); Hemoglobin 11.4 GM/DL (14.0-18.0); Immature Granulocytes % 0.3 %; Immature Granulocytes Absolute 0.02 #; Lymphocytes # 2.1 10*3/uL (1.4-4.0); Lymphocytes % 30.6 % (21.2-54.2); Mean Corpuscular HGB Conc 31.8 GM/DL (32-36); Mean Corpuscular Hemoglobin 27 PG (27-34); Mean Corpuscular Volume 83.1 FL (87-102); Mean Platelet Volume 9.9 FL (9.6-12.0); Monocytes # 0.9 10*3/uL (0.11-0.8); Monocytes % 13.7 % (1.7-12.7); Neutrophils % 45.1 % (38.7-73.9); Platelet Count 314 T/CUMM (130-400); Red Blood Count 4.31 MC/CUMM (3.8-5.5); Red Cell Distribution Width 14.7 % (9.3-17.3); White Blood Count 6.7 T/CUMM (4-12)
[2018-02-05 11:30] LABS: Albumin 3.3 G/DL (3.4-5.0); Bilirubin,Total 0.4 MG/DL (0.2-1.0); Calcium 8.8 MG/DL (8.5-10.1); Osmolality,Calculated 279.5 MOS/KG (273-304); Potassium 4.1 MMOL/L (3.5-5.1); Total Protein 7.3 G/DL (6.4-8.3)
[~2018-02-11 06:42] MED LIST: ceFAZolin 1,000 MG VIAL ONE
[2018-02-11] MEDS ORDERED: LACTATED RINGERS 1,000 ML IV SCH (07:30)
[2018-02-11] MEDS ORDERED: DIAZEPAM 5 MG TABLET PO ONE (08:25)
[2018-02-11] MEDS ORDERED: FAMOTIDINE 20 MG TABLET PO ONE (08:25)
[2018-02-11] MEDS ORDERED: HEPARIN 5,000 UNIT/1 ML VIAL ONE (08:28)
[2018-02-11] MEDS ORDERED: LIDOCAINE 1% 20 ML VIAL ONE (08:28)
[2018-02-11] MEDS ORDERED: DIAZEPAM 5 MG TABLET ONE (08:44)
[2018-02-11] MEDS ORDERED: FAMOTIDINE 20 MG TABLET ONE (08:44)
[2018-02-11] MEDS ORDERED: GLUCAGON 1 MG VIAL IM PRN (10:40)
[2018-02-11] MEDS ORDERED: PROMETHAZINE 25 MG/1 ML VIAL IM PRN (10:40)
[2018-02-11] MEDS ORDERED: oxyCODONE/ACETAMINOPHEN 5-325 MG TABLET PO PRN ×2 (10:40)
[2018-02-11] MEDS ORDERED: NALOXONE 0.4 MG/ML VIAL IV PRN (10:40)
[2018-02-11] MEDS ORDERED: ONDANSETRON 4 MG/2 ML VIAL IV PRN (10:40)
[2018-02-11] MEDS ORDERED: DEXTROSE 50% 25 GM/50 ML VIAL IV PRN (10:40)
[2018-02-11] MEDS ORDERED: HYDROmorphone 2 MG/1 ML VIAL IV PRN ×2 (10:40)
[2018-02-11] MEDS ORDERED: predniSONE 10 MG TABLET PO PRN (10:43)
[2018-02-11] MEDS ORDERED: ALBUTEROL/IPRATROPIUM 3 ML NEB RESP TX ONE (10:45)
[2018-02-11] MEDS ORDERED: fentaNYL 100 MCG/2 ML VIAL ONE (10:56)
[2018-02-11] MEDS ORDERED: HEPARIN/NACL 0.9% 2 UNITS/ML 500 ML IV ONE (10:56)
[2018-02-11] MEDS ORDERED: SEVOFLURANE 1 UNIT/15 MINUTE INH ONE (10:56)
[2018-02-11] MEDS ORDERED: HEPARIN 10,000 UNIT/10 ML VIAL ONE (10:56)
[2018-02-11] MEDS ORDERED: ETOMIDATE 40 MG/20 ML VIAL IV ONE (10:56)
[2018-02-11] MEDS ORDERED: PHENYLEPHRINE 10 MG/1 ML VIAL IV ONE (10:56)
[2018-02-11] MEDS ORDERED: ePHEDrine 50 MG/ML AMP ONE (10:56)
[2018-02-11] MEDS ORDERED: ONDANSETRON 4 MG/2 ML VIAL ONE (10:56)
[2018-02-11] MEDS ORDERED: HYDROCORTISONE 100 MG VIAL ONE (10:57)
[2018-02-11] MEDS ORDERED: GLYCOPYRROLATE 0.4 MG/2 ML VIAL ONE (10:57)
[2018-02-11] MEDS ORDERED: SODIUM CHLORIDE 0.9% 250 ML IV ONE (10:57)
[2018-02-11] MEDS ORDERED: LACTATED RINGERS 1,000 ML IV ONE (10:57)
[2018-02-11] MEDS ORDERED: NEOSTIGMINE 10 MG/10 ML VIAL ONE (10:57)
[2018-02-11] MEDS ORDERED: ROCURONIUM 100 MG/10 ML VIAL IV ONE (10:57)
[2018-02-11] MEDS ORDERED: PHENYLEPHRINE 1 MG/10 ML SYRINGE IV ONE (10:57)
[2018-02-11] MEDS ORDERED: PROTAMINE SULFATE 50 MG/5 ML VIAL IV ONE (10:57)
[2018-02-11] MEDS ORDERED: SODIUM CHLORIDE 0.9% 1,000 ML IV ONE (10:57)
[2018-02-11] MEDS ORDERED: PHENYLEPHRINE DRIP 40 MG/250 ML PREMIX IV SCH (11:00)
[2018-02-11] MEDS ORDERED: NITROPRUSSIDE 100 MG in DEXTROSE 5% 250 ML IV SCH (11:00)
[2018-02-11] MEDS: ALBUTEROL/IPRATROPIUM 3 ML NEB RESP TX SCH ×2 (13:04→19:39)
[2018-02-11] MEDS: ASPIRIN EC 81 MG TABLET PO SCH (13:28)
[2018-02-11] MEDS: LACTATED RINGERS 1,000 ML IV SCH (17:04)
[2018-02-11] MEDS: BUDESONIDE/FORMOTEROL 160-4.5 INHALER 6 GM INH SCH (21:24)
[2018-02-12] MEDS: ALBUTEROL/IPRATROPIUM 3 ML NEB RESP TX SCH ×4 (00:18→19:21)
[2018-02-12] MEDS: LACTATED RINGERS 1,000 ML IV SCH ×2 (03:36→07:50)
[2018-02-12] MEDS: FUROSEMIDE 40 MG TABLET PO SCH (08:55)
[2018-02-12] MEDS: MAGNESIUM CHLORIDE 64 MG TABLET PO SCH (08:55)
[2018-02-12] MEDS: ASPIRIN EC 81 MG TABLET PO SCH (08:55)
[2018-02-12] MEDS: POTASSIUM CHLORIDE 10 MEQ TABLET PO SCH (08:55)
[2018-02-12] MEDS ORDERED: amLODIPine 5 MG TABLET PO SCH (09:00)
[2018-02-12] MEDS: BUDESONIDE/FORMOTEROL 160-4.5 INHALER 6 GM INH SCH ×2 (09:01→20:21)
[2018-02-13] MEDS: ALBUTEROL/IPRATROPIUM 3 ML NEB RESP TX SCH ×4 (00:23→19:34)
[2018-02-13] MEDS: ASPIRIN EC 81 MG TABLET PO SCH (09:25)
[2018-02-13] MEDS: FUROSEMIDE 40 MG TABLET PO SCH (09:25)
[2018-02-13] MEDS: POTASSIUM CHLORIDE 10 MEQ TABLET PO SCH (09:25)
[2018-02-13] MEDS: BUDESONIDE/FORMOTEROL 160-4.5 INHALER 6 GM INH SCH ×2 (09:26→21:10)
[2018-02-13] MEDS: MAGNESIUM CHLORIDE 64 MG TABLET PO SCH (09:27)
[2018-02-14] MEDS: ALBUTEROL/IPRATROPIUM 3 ML NEB RESP TX SCH ×2 (00:31→08:06)
[2018-02-14] MEDS: BUDESONIDE/FORMOTEROL 160-4.5 INHALER 6 GM INH SCH (09:15)
[2018-02-14] MEDS: FUROSEMIDE 40 MG TABLET PO SCH (09:16)
[2018-02-14] MEDS: POTASSIUM CHLORIDE 10 MEQ TABLET PO SCH (09:16)
[2018-02-14] MEDS: ASPIRIN EC 81 MG TABLET PO SCH (09:16)
[2018-02-14] MEDS: MAGNESIUM CHLORIDE 64 MG TABLET PO SCH (09:16)
[2018-02-14 11:51] VITALS: BP 139/80
== END 2018-02-14 12:15 | disposition home or self-care (01) | DRG 39 ==
LOC: N.OR 06:42 → N.SDSINP 06:43 → N.ICU 11:46 → N.3E 02-12 16:15
PROVIDERS: ADMIT Surgery; ATTEND Surgery

== ENCOUNTER 2018-02-16 11:12 | Inpatient (IN) ==
[2018-02-16 11:52] LABS: Basophils % 0.1 % (0.0-0.8); Hematocrit 33.7 VOL% (42.0-52.0); Hemoglobin 10.5 GM/DL (14.0-18.0); Immature Granulocytes % 0.8 %; Immature Granulocytes Absolute 0.07 #; Lymphocytes # 0.7 10*3/uL (1.4-4.0); Lymphocytes % 7.8 % (21.2-54.2); Mean Corpuscular HGB Conc 31.2 GM/DL (32-36); Mean Corpuscular Hemoglobin 26 PG (27-34); Mean Corpuscular Volume 83.6 FL (87-102); Mean Platelet Volume 10.4 FL (9.6-12.0); Monocytes # 0.5 10*3/uL (0.11-0.8); Monocytes % 5.9 % (1.7-12.7); Neutrophils # 7.3 10*3/uL (1.4-7.4); Neutrophils % 85.4 % (38.7-73.9); Platelet Count 393 T/CUMM (130-400); Red Blood Count 4.03 MC/CUMM (3.8-5.5); Red Cell Distribution Width 14.8 % (9.3-17.3); White Blood Count 8.5 T/CUMM (4-12)
[2018-02-16 12:05] LABS: PT Patient Result 10.8 SECS; Partial Thromboplastin Time 26.8 SECS (0-40)
[2018-02-16 12:21] LABS: Albumin 3.3 G/DL (3.4-5.0); Bilirubin,Total 0.6 MG/DL (0.2-1.0); Calcium 8.8 MG/DL (8.5-10.1); Osmolality,Calculated 291.7 MOS/KG (273-304); Potassium 4.6 MMOL/L (3.5-5.1); Total Protein 7.1 G/DL (6.4-8.3)
[2018-02-16] MEDS ORDERED: ALBUTEROL/IPRATROPIUM 3 ML NEB RESP TX STA (12:51)
[2018-02-16] MEDS ORDERED: FUROSEMIDE 40 MG/4 ML VIAL IV STA (14:18)
[2018-02-16] MEDS ORDERED: ONDANSETRON 4 MG/2 ML VIAL IV PRN (14:34)
[2018-02-16] MEDS ORDERED: ACETAMINOPHEN 325 MG TABLET PO PRN (14:34)
[2018-02-16] MEDS ORDERED: predniSONE 20 MG TABLET PO PRN (14:36)
[2018-02-16] MEDS: FUROSEMIDE 40 MG/4 ML VIAL IV SCH (17:06)
[2018-02-16] MEDS: methylPREDNISolone SOD SUC 125 MG/2 ML VIAL IV SCH (17:33)
[2018-02-16] MEDS ORDERED: MAGNESIUM CHLORIDE 64 MG TABLET PO SCH (19:00)
[2018-02-16 19:36] LABS: Troponin I 0.289 NG/ML (0.00-0.045)
[2018-02-16] MEDS: ALBUTEROL/IPRATROPIUM 3 ML NEB RESP TX SCH (19:41)
[2018-02-16] MEDS: BUDESONIDE/FORMOTEROL 160-4.5 INHALER 6 GM INH SCH (20:32)
[2018-02-16] MEDS: MAGNESIUM CHLORIDE 64 MG TABLET PO SCH (20:32)
[2018-02-17 00:27] LABS: Troponin I 0.405 NG/ML (0.00-0.045)
[2018-02-17] MEDS: ALBUTEROL/IPRATROPIUM 3 ML NEB RESP TX SCH ×5 (00:56→21:25)
[2018-02-17 05:20] LABS: Basophils % 0.1 % (0.0-0.8); Hematocrit 33.8 VOL% (42.0-52.0); Hemoglobin 10.7 GM/DL (14.0-18.0); Immature Granulocytes % 1.7 %; Immature Granulocytes Absolute 0.13 #; Lymphocytes # 0.5 10*3/uL (1.4-4.0); Lymphocytes % 7.2 % (21.2-54.2); Mean Corpuscular HGB Conc 31.7 GM/DL (32-36); Mean Corpuscular Hemoglobin 26 PG (27-34); Mean Platelet Volume 10.5 FL (9.6-12.0); Monocytes # 0.4 10*3/uL (0.11-0.8); Monocytes % 5.2 % (1.7-12.7); Neutrophils # 6.5 10*3/uL (1.4-7.4); Neutrophils % 85.8 % (38.7-73.9); Platelet Count 413 T/CUMM (130-400); Red Blood Count 4.12 MC/CUMM (3.8-5.5); Red Cell Distribution Width 14.8 % (9.3-17.3); White Blood Count 7.6 T/CUMM (4-12)
[2018-02-17] MEDS: methylPREDNISolone SOD SUC 125 MG/2 ML VIAL IV SCH (05:42)
[2018-02-17 05:43] LABS: Calcium 8.9 MG/DL (8.5-10.1); Osmolality,Calculated 297.7 MOS/KG (273-304); Potassium 4.3 MMOL/L (3.5-5.1)
[2018-02-17] MEDS ORDERED: metOLazone 5 MG TABLET PO SCH (09:00)
[2018-02-17] MEDS: POTASSIUM CHLORIDE 10 MEQ TABLET PO SCH (09:00)
[2018-02-17] MEDS ORDERED: FUROSEMIDE 40 MG/4 ML VIAL IV SCH (09:00)
[2018-02-17] MEDS: PANTOPRAZOLE 40 MG TABLET PO SCH (09:00)
[2018-02-17] MEDS: FUROSEMIDE 40 MG/4 ML VIAL IV SCH ×2 (09:00→15:59)
[2018-02-17] MEDS: BUDESONIDE/FORMOTEROL 160-4.5 INHALER 6 GM INH SCH ×2 (09:01→21:40)
[2018-02-17] MEDS: ASPIRIN EC 81 MG TABLET PO SCH (09:01)
[2018-02-17] MEDS: methylPREDNISolone SOD SUC 40 MG/1 ML VIAL IV SCH ×2 (14:39→21:40)
[2018-02-17] MEDS: MAGNESIUM CHLORIDE 64 MG TABLET PO SCH (21:40)
[2018-02-18] MEDS: ALBUTEROL/IPRATROPIUM 3 ML NEB RESP TX SCH ×5 (01:00→19:18)
[2018-02-18 04:40] LABS: Basophils % 0.1 % (0.0-0.8); Hematocrit 33.4 VOL% (42.0-52.0); Hemoglobin 10.8 GM/DL (14.0-18.0); Immature Granulocytes % 1.6 %; Immature Granulocytes Absolute 0.19 #; Lymphocytes # 0.6 10*3/uL (1.4-4.0); Lymphocytes % 4.6 % (21.2-54.2); Mean Corpuscular HGB Conc 32.3 GM/DL (32-36); Mean Corpuscular Hemoglobin 26 PG (27-34); Mean Corpuscular Volume 81.3 FL (87-102); Mean Platelet Volume 11.1 FL (9.6-12.0); Monocytes # 0.8 10*3/uL (0.11-0.8); Monocytes % 6.9 % (1.7-12.7); NRBC # 0.02 10*3/uL; Neutrophils # 10.5 10*3/uL (1.4-7.4); Neutrophils % 86.8 % (38.7-73.9); Platelet Count 351 T/CUMM (130-400); Red Blood Count 4.11 MC/CUMM (3.8-5.5); Red Cell Distribution Width 14.9 % (9.3-17.3); White Blood Count 12.1 T/CUMM (4-12)
[2018-02-18 05:03] LABS: Calcium 8.4 MG/DL (8.5-10.1); Osmolality,Calculated 307.5 MOS/KG (273-304); Potassium 4.7 MMOL/L (3.5-5.1)
[2018-02-18 05:22] LABS: Hypochromasia 1+; Lymphocytes 2 % (20-55); Platelet Estimate Adequate; Segmented Neutrophils 90 % (50-85); Total Cells Counted 100
[2018-02-18 05:23] LABS: Ovalocytes Slight
[2018-02-18] MEDS: methylPREDNISolone SOD SUC 40 MG/1 ML VIAL IV SCH ×3 (05:58→21:25)
[2018-02-18] MEDS ORDERED: FUROSEMIDE 40 MG/4 ML VIAL IV ONE (08:27)
[2018-02-18] MEDS ORDERED: POLYETHYLENE GLYCOL POWDER 17 GM PACK PO PRN (08:28)
[2018-02-18] MEDS: FUROSEMIDE 40 MG/4 ML VIAL IV SCH (08:37)
[2018-02-18] MEDS: PANTOPRAZOLE 40 MG TABLET PO SCH (09:39)
[2018-02-18] MEDS: ASPIRIN EC 81 MG TABLET PO SCH (09:39)
[2018-02-18] MEDS: POTASSIUM CHLORIDE 10 MEQ TABLET PO SCH (09:39)
[2018-02-18] MEDS: BUDESONIDE/FORMOTEROL 160-4.5 INHALER 6 GM INH SCH ×2 (09:39→21:25)
[2018-02-18 10:05] LABS: Amorphous Crystals,Urine Occasional /HPF (Few); Apearance,Urine Slightly Hazy (Clear); Bacteria,Urine Occasional /HPF (Few); Bilirubin,Urine Negative (Negative); Blood, Urine Moderate mg/dL (Negative); Glucose,Urine (UA) Negative (Negative); Hyaline Casts,Urine 4 /LPF (0-3); Ketones,Urine Negative (Negative); Mucus,Urine Occasional /LPF (Occasional); Nitrite,Urine Negative (Negative); Protein,Urine 30 MG/DL; RBC,Urine 1 /HPF (0-4); Urine Color Yellow (Yellow); WBC,Urine <1 /HPF (0-6)
[2018-02-18] MEDS: MAGNESIUM CHLORIDE 64 MG TABLET PO SCH (21:26)
[2018-02-19] MEDS: ALBUTEROL/IPRATROPIUM 3 ML NEB RESP TX SCH ×6 (00:05→19:35)
[2018-02-19 03:52] LABS: Basophils % 0.2 % (0.0-0.8); Hematocrit 32.9 VOL% (42.0-52.0); Hemoglobin 10.4 GM/DL (14.0-18.0); Immature Granulocytes % 2.3 %; Lymphocytes # 0.3 10*3/uL (1.4-4.0); Lymphocytes % 2.1 % (21.2-54.2); Mean Corpuscular HGB Conc 31.6 GM/DL (32-36); Mean Corpuscular Hemoglobin 26 PG (27-34); Mean Corpuscular Volume 82.7 FL (87-102); Mean Platelet Volume 11.5 FL (9.6-12.0); Monocytes # 0.7 10*3/uL (0.11-0.8); Monocytes % 5.1 % (1.7-12.7); NRBC # 0.07 10*3/uL; Neutrophils # 11.9 10*3/uL (1.4-7.4); Neutrophils % 90.3 % (38.7-73.9); Platelet Count 245 T/CUMM (130-400); Red Blood Count 3.98 MC/CUMM (3.8-5.5); Red Cell Distribution Width 14.5 % (9.3-17.3); White Blood Count 13.1 T/CUMM (4-12)
[2018-02-19 04:09] LABS: Calcium 8.3 MG/DL (8.5-10.1); Osmolality,Calculated 316.7 MOS/KG (273-304); Potassium 4.4 MMOL/L (3.5-5.1)
[2018-02-19 04:21] LABS: Band Neutrophils 5 % (0-10); Lymphocytes 1 % (20-55); Segmented Neutrophils 91 % (50-85); Total Cells Counted 100
[2018-02-19 04:22] LABS: Anisocytosis 1+; Platelet Estimate Adequate
[2018-02-19] MEDS: methylPREDNISolone SOD SUC 40 MG/1 ML VIAL IV SCH ×3 (05:48→22:56)
[2018-02-19] MEDS ORDERED: FUROSEMIDE 40 MG/4 ML VIAL IV ONE (07:25)
[2018-02-19] MEDS: POTASSIUM CHLORIDE 10 MEQ TABLET PO SCH (08:29)
[2018-02-19] MEDS: PANTOPRAZOLE 40 MG TABLET PO SCH (08:29)
[2018-02-19] MEDS: ASPIRIN EC 81 MG TABLET PO SCH (08:29)
[2018-02-19] MEDS: BUDESONIDE/FORMOTEROL 160-4.5 INHALER 6 GM INH SCH ×2 (08:30→22:56)
[2018-02-19 20:07] LABS: ABG Base Excess -12.1 MMOL/L (-2.5-2.5); ABG HCO3 14.9 MMOL/L (20-26); ABG PO2 98.1 MM HG (80-95); ABG TCO2 18.8 MMOL/L (23-27)
[2018-02-19 20:14] LABS: ABG PH 7.058 (7.35-7.45)
[2018-02-19 20:15] LABS: ABG PCO2 69.8 MM HG (35-48)
[2018-02-19] MEDS ORDERED: EPINEPHrine 1 MG/10 ML SYRINGE ONE ×6 (22:49)
[2018-02-19] MEDS ORDERED: SODIUM BICARBONATE 50 MEQ/50 ML SYRINGE IV ONE ×5 (22:49)
[2018-02-19] MEDS: MAGNESIUM CHLORIDE 64 MG TABLET PO SCH (22:56)
[2018-02-19 23:20] VITALS: BP 63/38
[2018-02-20] MEDS ORDERED: PROMETHAZINE 25 MG/1 ML VIAL IM ONE (07:30)
[2018-02-20] MEDS ORDERED: MEPERIDINE 50 MG/1 ML VIAL IM ONE (07:30)
[2018-02-20] MEDS ORDERED: LIDOCAINE 2% 20 ML VIAL RESP TX ONE (08:00)
[2018-02-20] MEDS ORDERED: MIDAZOLAM 2 MG/2 ML VIAL IV ONE (08:00)
[2018-02-20] MEDS ORDERED: LIDOCAINE 2% VISCOUS 100 ML BOTTLE SWISH/SPIT ONE (08:00)
[2018-02-20] MEDS ORDERED: LIDOCAINE 1% 20 ML VIAL MISC INJ ONE (08:00)
== END 2018-02-19 21:56 | disposition expired | DRG 190 ==
LOC: N.ED 11:12 → N.EDINP 14:31 → SUATTDRO 14:31 → N.TELES 16:46
PROVIDERS: ADMIT Internal Medicine; ATTEND Internal Medicine Geriatric Medicine